=== PATIENT | female | born 1990 | race Caucasian/White ===

== ENCOUNTER 2024-09-25 13:11 | Emergency (ER) | payer SELFPAY ==
[2024-09-25 13:21] VITALS: BP 119/89; PULSE 73; RESP 18; TEMP 98.8; BMI 27.3
== END 2024-09-25 14:26 | disposition home or self-care (01) ==
LOC: JERFT 13:11
DX: N89.8 Other specified noninflammatory disorders of vagina (principal)
CPT/HCPCS: 36415; 84703; 87070; 87077; 87186; 87205; 87491; 87591; 87661; 99283-25